=== PATIENT | female | born 1965 | race Caucasian/White ===

== ENCOUNTER 2018-03-19 17:02 | Emergency (ER) | payer SELFPAY ==
[2018-03-19 17:15] VITALS: BP 137/78
--- NOTE | 2018-03-19 17:22 | ED Physician Documentation ---
PD HPI LOWER EXT INJURY - Stated complaint Stated Complaint: R KNEE INJURY - Chief complaint Chief Complaint: Ext Problem - History obtained from History obtained from: Patient - History of Present Illness PD HPI LOW EXT INJURY LOCATION: Other (Fell two days ago and feels like R knee inverted. [place] C/O medial knee and posterior knee pain.) - Additional information Additional information: She had a torn meniscus in that knee a few years ago which was treated conservatively with physical therapy. Review of Systems Constitutional: reports: Reviewed and negative Cardiac: reports: Reviewed and negative Respiratory: reports: Reviewed and negative PD PAST MEDICAL HISTORY - Past Medical History Past Medical History: Yes Neuro: Headache/migraine Psych: Depression - Past Surgical History Past Surgical History: Yes General: Cholecystectomy /[employer]: Breast reduction - Present Medications Home Medications: Ambulatory Orders Medication Instructions Recorded Confirmed HYDROcod/ACETAM 5/325 [[place] 5/325] 1 - 2 ea PO Q6H PRN #15 tablet 03/19/18 SUMAtriptan [Imitrex] 25 mg PO DAILY 03/19/18 03/19/18 Sertraline HCl [Zoloft] 100 mg PO DAILY 03/19/18 03/19/18 - Allergies Allergies/Adverse Reactions: Allergies Allergy/AdvReac Type Severity Reaction Status Date / Time No Known Drug Allergies Allergy Verified 03/19/18 17:15 - Social History Does the pt smoke?: No Smoking Status: Never smoker Does the pt drink ETOH?: Yes ETOH Use: Wine Does the pt have substance abuse?: No - Immunizations Immunizations are current?: Yes - POLST Patient has POLST: No PD ED PE NORMAL - Vitals Vital signs reviewed: Yes - General General: Alert and oriented X 3, No acute distress - Extremities Extremities: Other (There is a modest effusion of the right knee, she has relatively painless range of motion but a lot of tenderness medially and posteriorly. Ligamentous testing is all without laxity, but she does have pain with grind testing.) - Neuro Neuro: Alert and oriented X 3, Normal speech - Psych Psych: Normal mood, Normal affect Results - Vitals Vitals: Vital Signs - 24 hr 03/19/18 17:13 Temperature 36.2 C L Heart Rate 83 Respiratory 18 Rate Blood Pressure 137/78 H O2 Saturation 98 Oxygen O2 Source Room air - Rads (name of study) R knee 4v Radiology: EMP read contemporaneously (NAD, Medial femoral condylar ossification , potentially old trauma versus tendinopathy.) Departure - Departure Disposition: 01 Home, Self Care Clinical Impression: Right knee sprain Qualifiers: Encounter type: initial encounter Involved ligament of knee: medial collateral ligament Qualified Code(s): S83.411A - Sprain of medial collateral ligament of right knee, initial encounter Condition: Good Record reviewed to determine appropriate education?: Yes Instructions: ED Sprain Knee Prescriptions: HYDROcod/ACETAM 5/325 [[place] 5/325] 1 - 2 ea PO Q6H PRN #15 tablet PRN Reason: Pain Comments: You can wear the splint as needed for comfort, follow-up with your primary care physician or an orthopedist when you get home. Your blood pressure was elevated today on check into the emergency department. This does not mean that you have hypertension, it is a common phenomenon to come to the emergency department and have elevated blood pressure. I recommend that you see your primary care physician within the week to have it rechecked when you are feeling better. Do not drink or drive while taking narcotic pain medication. Note that many narcotic pain relievers also contain Tylenol/acetaminophen. Please ensure that your total dose of acetaminophen from all sources does not exceed 3 g (3000 mg) per day. You may get constipated while on this medication. Take a stool softener such as Colace twice a day while you are on it. Also add an [id number]-[id number] laxative such as senna or MiraLAX on any day that you do not have a bowel movement. If you received a narcotic pain medication or sedative while in the emergency department, do not drive for the next 24 hours.
[2018-03-19] MEDS ORDERED: HYDROcod/ACETAM 5/325 MG TABLET PO STA (17:27)
--- NOTE | 2018-03-19 18:03 | XRAY Preliminary Report ---
Exam: XR KNEE 4 VIEW RT IMPRESSION: 1. No acute fracture or joint effusion. 2. Soft tissue ossification at the medial femoral condyle. Possible old avulsion fracture versus tend inopathy. [facility] SITE ID: [id number]
--- NOTE | 2018-03-19 18:04 | XRAY Report ---
EXAM: RIGHT KNEE RADIOGRAPHY EXAM DATE: 03/19/2018 05:42 PM. CLINICAL HISTORY: Knee inj. COMPARISON: None. TECHNIQUE: 4 views. FINDINGS: Bones: Normal. No fractures or bone lesions. Joints: Normal. No effusion. No subluxations. Soft Tissues: There is soft tissue ossification located medial to the medial femoral condyle. IMPRESSION: 1. No acute fracture or joint effusion. 2. Soft tissue ossification at the medial femoral condyle. Possible old avulsion fracture versus tend inopathy. [facility] Referring Provider Line: [phone] SITE ID: [id number]
== END 2018-03-19 18:13 | disposition home or self-care (01) ==
LOC: ED 17:02
DX: S83.411A Sprain of medial collateral ligament of right knee, initial encounter (principal); W01.0XXA Fall on same level from slipping, tripping and stumbling without subsequent striking against object, initial encounter; X50.9XXA Other and unspecified overexertion or strenuous movements or postures, initial encounter; Y92.520 Airport as the place of occurrence of the external cause; R03.0 Elevated blood-pressure reading, without diagnosis of hypertension
CPT/HCPCS: 29530; 73564; 99283; A9270